=== PATIENT | female | born 1985 | race Two or more races ===

== ENCOUNTER 2023-03-27 21:12 | Emergency (ER) | payer MEDICARE, MEDICAID ==
[~2023-03-27] VITALS: Ht 162.6 cm; Wt 82.0 kg
[2023-03-27 21:24] VITALS: BP 123/82; PULSE 103; RESP 16; TEMP 98.3; O2SAT 98
[2023-03-27 22:35] LABS: BASOPHILS % 0.3 % (0.0-2.0); HEMATOCRIT. 37.4 % (36.0-48.0); HEMOGLOBIN. 12.1 g/dL (12.0-16.0); MEAN CORPUSCULAR HGB CONC 32.5 g/dL (31.0-37.0); MEAN CORPUSCULAR VOLUME 92.3 fL (81.0-99.0); MEAN PLATELET VOLUME 7.9 fl (7.4-10.4); NEUTROPHILS % 52.7 % (40.0-76.0); PLATELET 183 x1000/uL (130-400); RED BLOOD CELL COUNT 4.05 mill/uL (4.2-5.4); RED CELL DISTRIBUTION WIDTH 12.4 % (11.6-14.6); WHITE BLOOD COUNT 9.1 x1000/uL (4.5-11.0)
[2023-03-27 22:45] LABS: CHLORIDE 116 mEq/L (98-107); INDEX HEMOLYSI 1 (1-3); INDEX ICTERIC 1 (1-4); INDEX LIPEMIC 1 (1-3); POTASSIUM 4.2 mEq/L (3.5-5.1); SODIUM 140 mEq/L (136-145)
[2023-03-27 22:48] LABS: HCG SCREEN NEGATIVE
[2023-03-27 22:49] LABS: CALCIUM 8.2 mg/dL (8.5-10.1); CARBON DIOXIDE 22 mEq/L (21-32); CREATININE 0.9 mg/dL (0.6-1.3); GLUCOSE 118 mg/dL (70-105); UREA NITROGEN BLOOD 12 mg/dL (7-21)
[2023-03-27] MEDS ORDERED: TOPUD MT (23:14)
[2023-03-27] MEDS ORDERED: NITR-87 MT (23:14)
== END 2023-03-27 23:45 | disposition home or self-care (01) ==
LOC: ER 21:12
DX: R51.9 Headache, unspecified (principal)
CPT/HCPCS: 36415; 80048; 84703; 85025; 99283

== ENCOUNTER 2023-04-21 17:41 | Emergency (ER) | payer MEDICARE, MEDICAID ==
[~2023-04-21] VITALS: Ht 162.6 cm; Wt 78.0 kg
[~2023-04-21 17:41] MED LIST: NITR-87 MT; TOPUD MT
[2023-04-21 17:47] VITALS: O2SAT 98
[2023-04-21 19:22] LABS: BASOPHILS % 0.3 % (0.0-2.0); EOSINOPHILS % 0.4 % (0.0-5.0); HEMATOCRIT. 37.2 % (36.0-48.0); HEMOGLOBIN. 12.1 g/dL (12.0-16.0); LYMPHOCYTES % 22.9 % (20.0-50.0); MEAN CORPUSCULAR HEMOGLOBIN 30.5 pg (28.0-32.0); MEAN CORPUSCULAR HGB CONC 32.6 g/dL (31.0-37.0); MEAN CORPUSCULAR VOLUME 93.6 fL (81.0-99.0); MEAN PLATELET VOLUME 8.9 fl (7.4-10.4); MONOCYTES % 4.2 % (2.0-8.0); NEUTROPHILS % 72.2 % (40.0-76.0); PLATELET 194 x1000/uL (130-400); RED BLOOD CELL COUNT 3.97 mill/uL (4.2-5.4); RED CELL DISTRIBUTION WIDTH 12.7 % (11.6-14.6); WHITE BLOOD COUNT 12.5 x1000/uL (4.5-11.0)
[2023-04-21 19:31] LABS: CHLORIDE 114 mEq/L (98-107); INDEX HEMOLYSI 1 (1-3); INDEX ICTERIC 1 (1-4); INDEX LIPEMIC 1 (1-3); POTASSIUM 3.5 mEq/L (3.5-5.1); SODIUM 141 mEq/L (136-145)
[2023-04-21 19:32] LABS: HCG SCREEN NEGATIVE
[2023-04-21 19:39] LABS: ACETAMINOPHEN <2 ug/mL ug/mL (10-30); ALANINE AMINOTRANSFERASE 36 IU/L (13-61); ALBUMIN 3.7 g/dL (3.4-5.0); ASPARTATE AMINOTRANSFERASE 12 IU/L (15-37); BILIRUBIN TOTAL 0.3 mg/dL (0.1-1.0); CALCIUM 8.9 mg/dL (8.5-10.1); CARBON DIOXIDE 22 mEq/L (21-32); CREATININE 0.9 mg/dL (0.6-1.3); ETHANOL BLOOD < 10 mg/dL (<10); GLUCOSE 101 mg/dL (70-105); UREA NITROGEN BLOOD 11 mg/dL (7-21)
[2023-04-21] MEDS ORDERED: QUETIAPINE FUMARATE 50MG TABLET PO SCH (21:00)
[2023-04-21] MEDS ORDERED: QUETIAPINE FUMARATE 50MG TABLET PO NR (21:45)
[2023-04-21 22:31] LABS: CLARITY URINE CLEAR (CLEAR); COLOR URINE YELLOW (YELLOW); GLUCOSE URINE NEGATIVE (NEGATIVE); KETONES URINE NEGATIVE (NEGATIVE); LEUKOCYTE ESTERASE URINE NEGATIVE (NEGATIVE); NITRITE URINE NEGATIVE (NEGATIVE); OCCULT BLOOD URINE NEGATIVE (NEGATIVE); PH URINE 6.5 (4.5-8.0); PROTEIN URINE NEGATIVE (NEGATIVE); SPECIFIC GRAVITY URINE 1.019 (1.005-1.030)
[2023-04-21 22:41] LABS: *AMPHETAMINES SCREEN URINE NEGATIVE (NEGATIVE); *BARBITURATES SCREEN URINE NEGATIVE (NEGATIVE); *BENZODIAZEPINES SCREEN URINE NEGATIVE (NEGATIVE); *COCAINE SCREEN URINE NEGATIVE (NEGATIVE); CANNABINOID URINE SCREEN NEGATIVE (NEGATIVE); OPIATES URINE SCREEN NEGATIVE (NEGATIVE); PHENCYCLIDINE URINE SCREEN NEGATIVE (NEGATIVE)
[2023-04-21 22:49] LABS: ECSTASY MDMA SCREEN URINE CONF.TEST INDICATED (NEGATIVE)
[2023-04-22] MEDS ORDERED: LORAZEPAM 1MG TABLET PO NR (11:45)
[2023-04-22] MEDS: QUETIAPINE FUMARATE 50MG TABLET PO SCH ×2 (12:43→21:38)
[2023-04-23] MEDS ORDERED: LORAZEPAM 1MG TABLET PO ONE ×2 (08:30→17:30)
[2023-04-23] MEDS: QUETIAPINE FUMARATE 50MG TABLET PO SCH (21:00)
[2023-04-24] MEDS ORDERED: HALOPERIDOL LACTATE 5MG/ML VIAL IM STA (08:17)
[2023-04-24] MEDS ORDERED: LORAZEPAM 2MG/ML CPJ IM STA (08:17)
[2023-04-24] MEDS: QUETIAPINE FUMARATE 50MG TABLET PO SCH (08:51)
[2023-04-24 17:12] VITALS: BP 102/76; PULSE 136; RESP 18; TEMP 99
== END 2023-04-24 17:53 | disposition home or self-care (01) ==
LOC: ER 17:41
DX: R45.851 Suicidal ideations (principal); Z20.822 Contact with and (suspected) exposure to COVID-19; Z86.59 Personal history of other mental and behavioral disorders
CPT/HCPCS: 80053; 80305; 81003; 81025; 80307; 80329; 80320; 84703; 85025; 36415; 99285; 87426; J1630; J2060; C9803; G0480

== ENCOUNTER 2023-05-04 11:54 | Emergency (ER) | payer MEDICARE, MEDICAID ==
[~2023-05-04] VITALS: Ht 157.5 cm; Wt 68.0 kg
[2023-05-04 11:57] VITALS: BP 127/85; PULSE 95; RESP 16; O2SAT 97
[2023-05-04 13:45] VITALS: TEMP 98.2
[2023-05-04] MEDS ORDERED: ACETAMINOPHEN 325MG TABLET PO ONE (13:45)
[2023-05-04] MEDS ORDERED: IBUP-2028 MT (16:26)
[2023-05-04] MEDS ORDERED: TOPUD MT (16:26)
== END 2023-05-04 16:52 | disposition home or self-care (01) ==
LOC: ER 11:54
DX: R51.9 Headache, unspecified (principal); F41.9 Anxiety disorder, unspecified; F31.9 Bipolar disorder, unspecified; F20.9 Schizophrenia, unspecified
CPT/HCPCS: 81025; 99284

== ENCOUNTER 2023-05-05 08:51 | Emergency (ER) | payer MEDICARE, MEDICAID ==
[~2023-05-05] VITALS: Ht 167.6 cm; Wt 64.0 kg
[~2023-05-05 08:51] MED LIST changes: +IBUP-2028 MT
[2023-05-05 08:58] VITALS: BP 114/66; PULSE 90; RESP 16; TEMP 98; O2SAT 99
[2023-05-05 10:24] LABS: BASOPHILS % 0.4 % (0.0-2.0); EOSINOPHILS % 0.2 % (0.0-5.0); HEMOGLOBIN. 14.1 g/dL (12.0-16.0); LYMPHOCYTES % 25.8 % (20.0-50.0); MEAN CORPUSCULAR HEMOGLOBIN 31.3 pg (28.0-32.0); MEAN CORPUSCULAR HGB CONC 32.9 g/dL (31.0-37.0); MEAN PLATELET VOLUME 8.7 fl (7.4-10.4); MONOCYTES % 4.2 % (2.0-8.0); NEUTROPHILS % 69.4 % (40.0-76.0); PLATELET 204 x1000/uL (130-400); RED BLOOD CELL COUNT 4.52 mill/uL (4.2-5.4); RED CELL DISTRIBUTION WIDTH 12.9 % (11.6-14.6); WHITE BLOOD COUNT 7.7 x1000/uL (4.5-11.0)
[2023-05-05 10:36] LABS: CHLORIDE 112 mEq/L (98-107); INDEX HEMOLYSI 1 (1-3); INDEX ICTERIC 1 (1-4); INDEX LIPEMIC 1 (1-3); SODIUM 140 mEq/L (136-145)
[2023-05-05 10:45] LABS: ALANINE AMINOTRANSFERASE 31 IU/L (13-61); ALBUMIN 4.2 g/dL (3.4-5.0); ASPARTATE AMINOTRANSFERASE 14 IU/L (15-37); BILIRUBIN TOTAL 0.3 mg/dL (0.1-1.0); CALCIUM 9.6 mg/dL (8.5-10.1); CARBON DIOXIDE 25 mEq/L (21-32); CREATININE 0.9 mg/dL (0.6-1.3); GLUCOSE 106 mg/dL (70-105); PROTEIN TOTAL 8.2 g/dL (6.0-8.3); UREA NITROGEN BLOOD 10 mg/dL (7-21)
[2023-05-05 10:54] LABS: CLARITY URINE CLOUDY (CLEAR); COLOR URINE YELLOW (YELLOW); GLUCOSE URINE NEGATIVE (NEGATIVE); KETONES URINE NEGATIVE (NEGATIVE); LEUKOCYTE ESTERASE URINE TRACE (NEGATIVE); NITRITE URINE NEGATIVE (NEGATIVE); OCCULT BLOOD URINE NEGATIVE (NEGATIVE); PH URINE 5.5 (4.5-8.0); PROTEIN URINE NEGATIVE (NEGATIVE); SPECIFIC GRAVITY URINE 1.021 (1.005-1.030)
[2023-05-05 10:58] LABS: BACTERIA URINE 1+; SQUAMOUS EPITHELIAL CELL URINE 2+ /lpf (RARE/1+); YEAST URINE NONE SEEN
[2023-05-05 11:06] LABS: HCG SCREEN NEGATIVE
[2023-05-05 11:20] LABS: MUCUS URINE 3+ /lpf (< = 2+)
[2023-05-05 11:21] LABS: CALCIUM OXALATE CRYSTALS URINE 2+ /lpf
[2023-05-05 11:22] LABS: RBC URINE NONE SEEN /hpf (0-2)
[2023-05-05 12:32] LABS: *AMPHETAMINES SCREEN URINE NEGATIVE (NEGATIVE); *BARBITURATES SCREEN URINE NEGATIVE (NEGATIVE); *BENZODIAZEPINES SCREEN URINE NEGATIVE (NEGATIVE); *COCAINE SCREEN URINE NEGATIVE (NEGATIVE); CANNABINOID URINE SCREEN NEGATIVE (NEGATIVE); METHADONE URINE SCREEN NEGATIVE (NEGATIVE); OPIATES URINE SCREEN NEGATIVE (NEGATIVE); PHENCYCLIDINE URINE SCREEN NEGATIVE (NEGATIVE)
[2023-05-05 12:36] LABS: ECSTASY MDMA SCREEN URINE CONF.TEST INDICATED (NEGATIVE)
== END 2023-05-05 11:52 | disposition home or self-care (01) ==
LOC: ER 09:06
DX: F15.90 Other stimulant use, unspecified, uncomplicated (principal)
CPT/HCPCS: 36415; 80053; 80305; 81003; 84703; 85025; 99283

== ENCOUNTER 2023-05-21 08:47 | Emergency (ER) | payer MEDICARE, MEDICAID ==
[~2023-05-21] VITALS: Ht 162.6 cm; Wt 75.0 kg
[2023-05-21 08:50] VITALS: O2SAT 100
[2023-05-21] MEDS ORDERED: ZIPRASIDONE MESYLATE 20MG/VIAL IM ONE (09:15)
[2023-05-21] MEDS ORDERED: DIPHENHYDRAMINE 50MG/ML VIAL IM ONE (09:15)
[2023-05-21 09:43] VITALS: BP 122/67; PULSE 79; RESP 18; TEMP 98.4
== END 2023-05-21 16:07 | disposition home or self-care (01) ==
LOC: ER 09:08
DX: R45.1 Restlessness and agitation (principal); F29 Unspecified psychosis not due to a substance or known physiological condition; F41.9 Anxiety disorder, unspecified; F20.9 Schizophrenia, unspecified; F31.9 Bipolar disorder, unspecified
CPT/HCPCS: 99284; 96372; J1200; J3486

== ENCOUNTER 2023-08-21 19:04 | Emergency (ER) | payer BC, MEDICAID ==
[~2023-08-21] VITALS: Ht 160 cm; Wt 59.0 kg
[2023-08-21 19:08] VITALS: O2SAT 99
[2023-08-22] MEDS: LORAZEPAM 2MG/ML INJ IM ONE (10:30)
[2023-08-22] MEDS: LORAZEPAM 1MG TABLET PO ONE (16:44)
[2023-08-22 17:26] VITALS: BP 130/82; PULSE 78; RESP 18; TEMP 97.8
== END 2023-08-22 17:40 | disposition home or self-care (01) ==
LOC: ER 19:04
DX: R68.89 Other general symptoms and signs (principal); F41.9 Anxiety disorder, unspecified; F31.9 Bipolar disorder, unspecified; F20.9 Schizophrenia, unspecified
CPT/HCPCS: 81025; 99283

== ENCOUNTER 2023-08-28 16:29 | Emergency (ER) | payer BC, MEDICAID ==
[~2023-08-28] VITALS: Ht 157.5 cm; Wt 75.0 kg
[2023-08-28 16:36] VITALS: BP 124/80; PULSE 76; RESP 16; TEMP 98.2; O2SAT 97
== END 2023-08-28 19:03 | disposition home or self-care (01) ==
LOC: ER 16:29
DX: R69 Illness, unspecified (principal); F41.9 Anxiety disorder, unspecified; F31.9 Bipolar disorder, unspecified
CPT/HCPCS: 99283

== ENCOUNTER 2023-09-17 09:06 | Emergency (ER) | payer BC, MEDICAID ==
[~2023-09-17] VITALS: Ht 167.6 cm; Wt 82.0 kg
[2023-09-17 09:08] VITALS: O2SAT 99
[2023-09-17] MEDS: SODIUM CHLORIDE 0.9% 1,000 ML IV ONE (10:35)
[2023-09-17 11:09] LABS: BASOPHILS % 0.5 % (0.0-2.0); EOSINOPHILS % 0.3 % (0.0-5.0); HEMATOCRIT. 41.6 % (36.0-48.0); HEMOGLOBIN. 13.1 g/dL (12.0-16.0); LYMPHOCYTES % 24.5 % (20.0-50.0); MEAN CORPUSCULAR HEMOGLOBIN 29.8 pg (28.0-32.0); MEAN CORPUSCULAR HGB CONC 31.5 g/dL (31.0-37.0); MEAN CORPUSCULAR VOLUME 94.4 fL (81.0-99.0); MEAN PLATELET VOLUME 9.3 fl (7.4-10.4); MONOCYTES % 2.9 % (2.0-8.0); NEUTROPHILS % 71.8 % (40.0-76.0); PLATELET 172 x1000/uL (130-400); RED CELL DISTRIBUTION WIDTH 12.8 % (11.6-14.6); WHITE BLOOD COUNT 7.4 x1000/uL (4.5-11.0)
[2023-09-17 11:20] LABS: CLARITY URINE CLEAR (CLEAR); COLOR URINE YELLOW (YELLOW); GLUCOSE URINE NEGATIVE (NEGATIVE); KETONES URINE NEGATIVE (NEGATIVE); LEUKOCYTE ESTERASE URINE NEGATIVE (NEGATIVE); NITRITE URINE NEGATIVE (NEGATIVE); OCCULT BLOOD URINE NEGATIVE (NEGATIVE); PROTEIN URINE NEGATIVE (NEGATIVE); SPECIFIC GRAVITY URINE 1.009 (1.005-1.030); UROBILINOGEN URINE 0.2 E.U./dL (0.2-1.0)
[2023-09-17 11:30] LABS: HCG SCREEN NEGATIVE
[2023-09-17 11:31] LABS: ALANINE AMINOTRANSFERASE 19 IU/L (10-49); ALBUMIN 4.5 g/dL (3.2-4.8); ASPARTATE AMINOTRANSFERASE 18 IU/L (<34); BILIRUBIN TOTAL 0.3 mg/dL (0.1-1.0); CALCIUM 9.2 mg/dL (8.7-10.4); CARBON DIOXIDE 24 mEq/L (21-32); CHLORIDE 108 mEq/L (98-107); GLUCOSE 113 mg/dL (70-105); POTASSIUM 3.8 mEq/L (3.5-5.1); PROTEIN TOTAL 7.2 g/dL (6.0-8.3); SODIUM 139 mEq/L (136-145); UREA NITROGEN BLOOD 13 mg/dL (9-23)
[2023-09-17 12:04] LABS: TROPONIN I HIGH SENSITIVITY < 4 ng/L (3.0-34)
[2023-09-17 13:39] VITALS: BP 118/73; PULSE 64; RESP 14; TEMP 98.1
== END 2023-09-17 13:40 | disposition home or self-care (01) ==
LOC: ER 09:06
DX: R55 Syncope and collapse (principal); F31.9 Bipolar disorder, unspecified; F41.9 Anxiety disorder, unspecified
CPT/HCPCS: 99284; 96360; 70450; 71045; 80053; 81003; 84703; 85025; 84484; 36415; J7030